=== PATIENT | male | born 1955 | race Caucasian/White ===

== ENCOUNTER 2024-10-01 08:54 | Outpatient (AMB) | payer OTHER, SELFPAY ==
--- NOTE | 2024-10-01 09:02 | PD.ORTHCLVIS ---
Vital signs 10/01/24 09:23 Height 1.7 m Height Method Measured Weight 83.178 kg Weight Measurement Method Standing Scale BMI 28.7 BP 105/70 Blood Pressure Source Automatic Cuff Blood Pressure Location Left Upper Arm Position Sitting Respiration 18 Pulse 134 H Pulse Source Monitor Temp 97.4 F Temp Source Temporal Artery Scan Pulse Oximetry (%) 92 L Oxygen Delivery Method Room Air Med/Allergies Allergies & Medications Allergies No Known Allergies Allergy (Verified 10/01/24 11:19) Medication Reconciliation amlodipine 10 mg tablet 10 mg PO QDAY 10/01/24 [History Confirmed 10/01/24] fluconazole 200 mg tablet 200 mg PO QDAY 10/01/24 [History Confirmed 10/01/24] gabapentin 100 mg capsule 100 mg PO QDAY 10/01/24 [History Confirmed 10/01/24] metformin 500 mg tablet 500 mg PO BID 10/01/24 [History Confirmed 10/01/24] tamsulosin 0.4 mg capsule 0.4 mg PO QDAY 10/01/24 [History Confirmed 10/01/24] Exam Exam Patient is in no acute distress and is cooperative with the examination today. Breathing is nonlabored. In no respiratory distress. Bilateral extremities were evaluated and demonstrates sensation intact to light touch. Palpable pedal pulses are present. No significant edema is present. Bilateral hips were examined. The patient has no pain with log roll of the hips. Internal rotation to 30 degrees and external rotation to 30 degrees is painless. Negative FADIR. The left knee was examined. The left knee is in varus alignment. Range of motion from 0-115 degrees. Knee is stable to varus and valgus as well as AP translation with <5mm. Patient has a negative McMurrays. There is no pain with patellofemoral compression and no crepitus noted. The knee is tender to palpation medially. The right knee was also examined. The right knee is in varus alignment. Range of motion from 0-120 degrees. Knee is stable to varus and valgus as well as AP translation with <5mm. Patient has a negative McMurrays. There is no pain with patellofemoral compression and no crepitus noted. The knee is tender to palpation medially Assessment and Plan Problem List (1) Bilateral primary osteoarthritis of knee: Status: Acute Plan: Patient is a 69-year-old male with diabetes that is apparently uncontrolled and bilateral knee pain worse on the left. We discussed different treatment options. We will get x-rays to better evaluate his knees. We will need a A1c as this would likely determine our treatment plan Advanced Care Planning Discussion Advance care planning discussed with:: patient Office Procedures GNS Level of Care Nursing/Assessment Patient Status: Established Patient Nursing Assessment/Reassesment: Medication Reconciliation, Update PMH in EMR and Vital Signs Coordination of Care: Complex Care and Chronic Disease 1-5, Education Complex Pt/Fam, Consent,records obtained, informed consent, Results/Orders obtained and Staff clarify orders Special Needs: Language special needs Established Patient Charge Established Patient Point Assignment: 95 Established Patient Point Charge: Level 3 (80-115) MA Intake Visit Data Collection New Patient or Established: New Patient (never been to [facility]) Reason for Visit:: BILATERAL OSTEOARTHRITIS OF THE KNEE Seen by Clinical Staff ONLY (RN/MA): No 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 PCP or OBGYN visit in last 3 months: Yes Hx Now: No Do You Feel Safe at Home: Yes Authorities Contacted: N/A Questionairres Past Medical History Past Medical History Have you ever been diagnosed with any of the following: Cardiology Problems Hypercholesterolemia: Yes Congestive Heart Failure: No Hypertension: Yes Respiratory Problems Chronic Obstructive Pulmonary Disease (COPD): No Genital/Urinary Problems Renal Disease: No Endocrine Problems Diabetes Mellitus Type 1: Yes Diabetes Mellitus Type 2: Yes Subjective Visit Visit for: new patient and knee Immunization / Flu Flu Vaccine in the Last 12 Months: Yes Flu Vaccine Exclusion Criteria: Already Received History of Present Illness Chief complaint: bilateral knee pain Patient is a pleasant 69-year-old male with left greater than right knee pain. Has been ongoing for several years. He is using a walker because of the pain. He has tried injections as well as anti-inflammatories in the past including Tylenol. He was told that he needed surgery in the past. The prior surgeon did leave the area unfortunately. In the referral from the primary care provider, he reports that his diabetes is uncontrolled. Will get a hemoglobin A1c to see if it is high and to see if he is an operative candidate Personal History BMI Counceling provided: Yes Pain Pain level (0-10): 10 Pain location: inside (medial) Pain quality: sharp Pain timing: night and increases with activity Associated signs & symptoms: none Ambulatory data Ambulatory device: walker Treatments Improvement with previous injections: No Improvement with PT: No Improvement with NSAIDS: no Review of Systems Review of Systems: All systems negative unless otherwise noted in HPI.
--- NOTE | 2024-10-01 09:12 | XR_ITS ---
Examination: Bilateral knees 2 views Bilateral knee left lateral knee 2 views Bilateral axial knees single view TECHNIQUE: Bilateral AP knees standing single view, bilateral PA knees standing single view flexion Standing right lateral knee left lateral knee 2 views Bilateral axial knees single view total 5 views Date and time: October 01, 2024 0923 hours INDICATIONS: Bilateral knee pain beginning 2 years ago. FINDINGS: Prominent osteopenia Severe narrowing, [id number], medial joint spaces bilaterally Moderate to advanced bilateral osteoarthritis patellofemoral joints No fractures IMPRESSION: Severe narrowing, [id number], medial joint spaces bilaterally
[2024-10-01 09:23] VITALS: BP 105/70; PULSE 134; RESP 18; TEMP 36.3; O2SAT 92; BMI 28.7
== END 2024-10-01 09:23 | disposition home or self-care (01) ==
PROVIDERS: PCP Family Medicine; Referring Provider Family Medicine; Supervising Provider Orthopaedic Surgery Adult Reconstructive Orthopaedic Surgery; Visit Provider Orthopaedic Surgery Adult Reconstructive Orthopaedic Surgery
DX: M17.0 Bilateral primary osteoarthritis of knee (principal); M25.562 Pain in left knee; M25.561 Pain in right knee; E11.9 Type 2 diabetes mellitus without complications; I10 Essential (primary) hypertension; E78.00 Pure hypercholesterolemia, unspecified
CPT/HCPCS: 73564; 99213; G0463

== ENCOUNTER 2024-10-22 08:08 | Outpatient (AMB) | payer OTHER, SELFPAY ==
--- NOTE | 2024-10-22 08:28 | ORTHONT_ITS ---
Vital signs 10/22/24 08:31 Height 1.7 m Height Method Stated Weight 79.634 kg Weight Measurement Method Standing Scale BMI 27.5 BP 96/64 Blood Pressure Source Automatic Cuff Blood Pressure Location Left Upper Arm Position Sitting Respiration 18 Pulse 118 H Pulse Source Monitor Temp 97.4 F Temp Source Temporal Artery Scan Pulse Oximetry (%) 95 Oxygen Delivery Method Room Air Med/Allergies Allergies & Medications Allergies No Known Allergies Allergy (Verified 10/22/24 08:33) Medication Reconciliation amlodipine 10 mg tablet 10 mg PO QDAY 10/01/24 [History Confirmed 10/22/24] fluconazole 200 mg tablet 200 mg PO QDAY 10/01/24 [History Confirmed 10/22/24] gabapentin 100 mg capsule 100 mg PO QDAY 10/01/24 [History Confirmed 10/22/24] metformin 500 mg tablet 500 mg PO BID 10/01/24 [History Confirmed 10/22/24] tamsulosin 0.4 mg capsule 0.4 mg PO QDAY 10/01/24 [History Confirmed 10/22/24] Exam Exam Patient is in no acute distress and is cooperative with the examination today. Breathing is nonlabored. In no respiratory distress. Bilateral extremities were evaluated and demonstrates sensation intact to light touch. Palpable pedal pulses are present. No significant edema is present. Bilateral hips were examined. The patient has no pain with log roll of the hips. Internal rotation to 30 degrees and external rotation to 30 degrees is painless. Negative FADIR. The left knee was examined. The left knee is in varus alignment. Range of motion from 0-115 degrees. Knee is stable to varus and valgus as well as AP translation with <5mm. Patient has a negative McMurrays. There is no pain with patellofemoral compression and no crepitus noted. The knee is tender to palpation medially. The right knee was also examined. The right knee is in varus alignment. Range of motion from 0-120 degrees. Knee is stable to varus and valgus as well as AP translation with <5mm. Patient has a negative McMurrays. There is no pain with patellofemoral compression and no crepitus noted. The knee is tender to palpation medially X-rays demonstrate bilateral joint space narrowing medially with complete obliteration of the medial joint space Assessment and Plan Problem List (1) Bilateral primary osteoarthritis of knee: Status: Acute Plan: Patient is a 69-year-old male with diabetes that is apparently uncontrolled and bilateral knee pain worse on the left. We discussed different treatment options. Once his sugars are controlled, we will consider surgery Advanced Care Planning Discussion Advance care planning discussed with:: patient Office Procedures GNS Level of Care Nursing/Assessment Patient Status: Established Patient Nursing Assessment/Reassesment: Medication Reconciliation, Update PMH in EMR and Vital Signs Coordination of Care: Complex Care and Chronic Disease 1-5, Education Complex Pt/Fam, Consent,records obtained, informed consent, Results/Orders obtained and Staff clarify orders Established Patient Charge Established Patient Point Assignment: 95 Established Patient Point Charge: EP Level 3 (80-115) MA Intake Visit Data Collection New Patient or Established: Established Patient (seen at [facility] within 3 years) Reason for Visit:: OA BILATERAL KNEE/XRAY Seen by Clinical Staff ONLY (RN/MA): No 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 PCP or OBGYN visit in last 3 months: Yes Hx Now: No Do You Feel Safe at Home: Yes Authorities Contacted: N/A Questionairres Past Medical History Past Medical History Have you ever been diagnosed with any of the following: Cardiology Problems Hypercholesterolemia: Yes Congestive Heart Failure: No Hypertension: Yes Respiratory Problems Chronic Obstructive Pulmonary Disease (COPD): No Smoking: No Smoking Cessation Counseling: No Smoking Exposure: No Genital/Urinary Problems Renal Disease: No Endocrine Problems Diabetes Mellitus Type 1: Yes Diabetes Mellitus Type 2: Yes Subjective Visit Visit for: follow up visit, knee and x-rays Immunization / Flu Flu Vaccine in the Last 12 Months: Yes Flu Vaccine Exclusion Criteria: Already Received History of Present Illness Chief complaint: bilateral knee pain Patient is a pleasant 69-year-old male with left greater than right knee pain. Has been ongoing for several years. He is using a walker because of the pain. He has tried injections as well as anti-inflammatories in the past including Tylenol. He was told that he needed surgery in the past. The prior surgeon did leave the area unfortunately. In the referral from the primary care provider, he reports that his diabetes is uncontrolled. His last hemoglobin A1c was over 8 and was previously 10. It still needs to be better controlled Personal History BMI Counceling provided: Yes Pain Pain level (0-10): 6 Pain location: inside (medial) Pain quality: sharp Pain timing: night and increases with activity Associated signs & symptoms: none Ambulatory data Ambulatory device: walker Treatments Improvement with previous injections: No Improvement with PT: No Improvement with NSAIDS: no Review of Systems Review of Systems: All systems negative unless otherwise noted in HPI.
[2024-10-22 08:31] VITALS: BP 96/64; PULSE 118; RESP 18; TEMP 36.3; O2SAT 95; BMI 27.5
== END 2024-10-22 08:38 | disposition home or self-care (01) ==
PROVIDERS: PCP Family Medicine; Referring Provider Family Medicine; Supervising Provider Orthopaedic Surgery Adult Reconstructive Orthopaedic Surgery; Visit Provider Orthopaedic Surgery Adult Reconstructive Orthopaedic Surgery
DX: M17.0 Bilateral primary osteoarthritis of knee (principal); M25.562 Pain in left knee; M25.561 Pain in right knee; I10 Essential (primary) hypertension; E78.00 Pure hypercholesterolemia, unspecified; E11.9 Type 2 diabetes mellitus without complications
CPT/HCPCS: 99213; G0463

== ENCOUNTER 2024-11-11 08:54 | Emergency (ER) | payer OTHER, SELFPAY ==
[2024-11-11 09:26] VITALS: BP 100/71; PULSE 126; RESP 18; TEMP 37.2; O2SAT 95; BMI 29.8
--- NOTE | 2024-11-11 09:39 | XR_ITS ---
Examination: AP chest single view Technique : AP portable upright chest single view Date and time: November 11, 2024 0947 hours INDICATIONS: Chest pain today. FINDINGS: Normal heart size Subsegmental atelectasis left base Basilar bronchitis pattern. No lobar pneumonia IMPRESSION: Basilar bronchitis pattern
[2024-11-11 10:32] LABS: INR 1.1 (0.9-1.3); Partial Thromboplastin Time 28.3 Seconds (22.0-36.0); Prothrombin Time 12.4 Seconds (9.0-12.2)
[2024-11-11 10:37] LABS: B-Type Natriuretic Peptide < 20 pg/mL (0-100)
[2024-11-11 10:50] LABS: Alanine Aminotransferase 17 U/L (10-49); Albumin, Serum 4.3 gm/dL (3.4-4.8); Albumin/Globulin Ratio 1.5 (1.2-2.2); Alkaline Phosphatase 78 U/L (46-116); Anion Gap 16 (7-16); Aspartate Amino Transferase 24 U/L (0-34); BUN/Creatinine Ratio 20 Ratio (12-20); Bilirubin,Total 0.5 mg/dL (0.3-1.2); Blood Urea Nitrogen 14 mg/dL (9-23); Calcium 10.1 mg/dL (8.3-10.6); Calcium (Corrected) 10.1 mg/dL (8.5-10.1); Carbon Dioxide 30.0 mMol/L (20.0-31.0); Chloride 94 mMol/L (98-107); Creatinine (Component) 0.7 mg/dL (0.6-1.3); Estimated Creatinine Clearance 87.8 mL/min (>60); Globulin 2.8 gm/dL (2.3-3.5); Glucose 98 mg/dL (74-106); Lipase 25 U/L (12-53); Magnesium 1.1 mg/dL (1.6-2.6); Osmolality,Calculated 279 (275-295); Sodium 140 mMol/L (136-145); Total Protein 7.1 gm/dL (5.7-8.2); Troponin I < 0.002 ng/mL (0.0-0.045); eGFR > 60 See Note
[2024-11-11 10:53] LABS: Potassium 2.4 mMol/L (3.4-5.1)
--- NOTE | 2024-11-11 11:08 | XR_ITS ---
Examination: CT abdomen with intravenous contrast CT pelvis with intravenous contrast 2-D coronal reconstructions 2-D sagittal reconstructions Date and time of exam:November 11, 2024 1217 hours, comparison 11/11/2024 1309 hours without contrast. CTDI: vol (mGy) 14.4 DLP: (mGycm) 893 Technique: Multiple axial sections of the abdomen and pelvis have been obtained. 64 slice high-resolution scanner used. 3 mm axial sections have been obtained, post intravenous injection 60 cc [id number] 2-D sagittal, coronal reconstructions obtained. Low dose protocols were performed. One or more of the following dose reduction techniques were used; automated exposure control, adjustment of the mA and/or KV according to patient size, use of iterative reconstruction technique. Findings: Multiple subcentimeter pulmonary nodules No focal liver or splenic lesion Distended gallbladder No pancreatic or adrenal mass No bowel obstruction No renal or ureteral calculi, no hydronephrosis Normal appendix No bowel obstruction or diverticulitis AP prostate dimension 4.4 cm Fat-containing inguinal hernia IMPRESSION: Distended gallbladder, recommend gallbladder sonography follow-up No renal or ureteral calculi, no hydronephrosis Normal appendix Negative for bowel obstruction
--- NOTE | 2024-11-11 11:10 | XR_ITS ---
Examination: CT brain head without contrast. 2-D sagittal coronal reconstructions Date and time of exam:November 11, 2024 1307 hours INDICATIONS: Onset dizziness today CTDI: vol (mGy):51.5 DLP: (mGycm):1043 Technique: Multiple CT axial sections of the brain have been obtained, 5 mm slice thickness. Contrast has not been administered. 2-D sagittal, coronal reconstructions have been obtained Low dose protocols were performed. One or more of the following dose reduction techniques were used; automated exposure control, adjustment of the mA and/or KV according to patient size, use of iterative reconstruction technique. Findings: No significant ventricular enlargement. Intra-axial or extra-axial hemorrhage density is not seen. No mass effect or midline shift Basal cisterns are not remarkable. Fourth ventricle is midline. Cranial vault intact. Acute right maxillary sinusitis Impression: Negative for acute hemorrhage, mass effect or midline shift Advise clinical correlation follow-up accordingly
[2024-11-11 11:19] LABS: Collection Type, Urine Clean Catch; Squamous Epithelial Cell,Urine 0 /hpf (0-5)
[2024-11-11 11:30] LABS: Amphetamine/Methamp Scrn,U Negative (Negative); Barbiturate Screen,Urine Negative (Negative); Benzodiazepines Screen,Urine Negative (Negative); Benzoylecgonine Screen, Ur Negative (Negative); Fentanyl Screen,Urine Negative (Negative); Opiate Screen,Urine Negative (Negative); THC Screen,Urine Negative (Negative)
[2024-11-11] MEDS: SODIUM CHLORIDE 0.9% 1000 ML 1,000 ML 999 ML IV ×2 (11:30→12:44)
[2024-11-11] MEDS: POTASSIUM CHL 10 mEq IVPB 10 MEQ/100 ML BAG 100 MEQ IV ×5 (11:30→22:57)
[2024-11-11] MEDS: Magnesium Sulfate 2 GM Ivpb 2 GM/50 ML BAG IV ×2 (11:31→22:57)
--- NOTE | 2024-11-11 11:31 | PD.EDNV ---
Nausea/Vomit./Diarrhea-RME/HPI General Chief complaint: Abdominal Pain Stated complaint: ABD PAIN AND DECREASED APPETITE Arrival date/time: 11/11/24 08:54 RME / HPI RME / HPI Narrative: 69 year old male with history of hypertension, diabetes, hyperlipidemia, arthritis presents to the ED for evaluation of nausea, vomiting, and decreased appetite today. Reportedly has had nausea and vomiting for 2 months and prescribed nausea medications by PCP. However, has had no relief. States in the last few weeks feels his symptoms are worse and accompanied by decreased appetite and weight loss. Additionally states he has a hernia to his left groin with increased pain to the area. Denies fevers, chills, sweats, chest pain, cough, shortness of breath, diarrhea, constipation, blood in stool, or change to urinary habits. Related Data Home Medications ?Medication ?Instructions ?Recorded ?Confirmed amlodipine 10 mg tablet 10 mg PO QDAY 10/01/24 10/22/24 fluconazole 200 mg tablet 200 mg PO QDAY 10/01/24 10/22/24 gabapentin 100 mg capsule 100 mg PO QDAY 10/01/24 10/22/24 metformin 500 mg tablet 500 mg PO BID 10/01/24 10/22/24 tamsulosin 0.4 mg capsule 0.4 mg PO QDAY 10/01/24 10/22/24 Allergies Allergy/AdvReac Type Severity Reaction Status Date / Time No Known Allergies Allergy Verified 11/11/24 08:57 Review of Systems Review of Systems Systems Reviewed: All systems reviewed, normal except as documented Past Medical History Past Medical History CARDIAC: Positive Cardiac Disorders, Hypercholesterolemia and Hypertension GASTROINTESTINAL: Positive Gastrointestinal Disorders (hernia) and Gall Bladder Disease (gallstones) MUSCULOSKELETAL: Positive Arthritis ENDOCRINE: Positive Diabetes Mellitus Type 2 Social History SMOKING STATUS: Former smoker ED Exam Narrative Physical exam: GENERAL APPEARANCE: alert and oriented x 4, well-developed, well-nourished, pallor HEENT: Normocephalic, atraumatic; keloid type scar left occiput of head; pupils equal, round, reactive to light; EOMI; mucous membranes pink, moist; oropharynx clear NECK: Supple LUNGS: CTABL; no wheezes, no rales, no rhonchi HEART: Regular rate, regular rhythm; normal S1, S2; no murmurs ABDOMEN: distended; normal BS; soft, mild diffuse tenderness, no guarding, no rebound; no masses, no organomegaly, no hernia BACK: no CVA tenderness EXTREMITIES: atraumatic; no edema NEUROLOGIC: awake; alert and oriented x4; cranial nerves II-XII grossly intact; no focal sensory or motor deficits PSYCHIATRIC: appropriate mood and affect SKIN: warm, dry, pallor; no rashes Course Quality Measures none Orders Category Date Time Status Bedside COVID-19 Antigen Test NOW Care 11/11/24 11:06 Active Bedside Influenza A&B Antigen Test NOW Care 11/11/24 11:[address] Screening NOW Care 11/11/24 11:08 Active EKG (ED ONLY) *Do not use* NOW Care 11/11/24 09:40 Completed IV [Insert IV] NOW Care 11/11/24 09:[address] abdomen pelvis w con Stat Exams 11/11/24 11:[address] abdomen pelvis wo con Stat Exams 11/11/24 13:[address] head/brain wo con Stat Exams 11/11/24 11:10 Completed EKG (ED Only) Stat Exams 11/11/24 09:39 Ordered US abdomen limited Stat Exams 11/11/24 14:29 Completed XR chest 1V portable Stat Exams 11/11/24 09:39 Completed B-Type Natriuretic Peptide Stat Lab 11/11/24 09:54 Completed CBC Stat Lab 11/11/24 09:54 Completed Comprehensive Metabolic Panel Stat Lab 11/11/24 09:54 Completed Drug Screen,Urine Stat Lab 11/11/24 10:56 Completed Lipase Stat Lab 11/11/24 09:54 Completed Magnesium Stat Lab 11/11/24 09:54 Completed Partial Thromboplastin Time Stat Lab 11/11/24 09:54 Completed Prothrombin Time with INR Stat Lab 11/11/24 09:54 Completed Troponin I Stat Lab 11/11/24 09:54 Completed Urinalysis, C/S if Indicated Stat Lab 11/11/24 10:56 Completed Magnesium Sulfate 2 GM Ivpb [Magnesium Sulfate Ivpb] Med 11/11/24 10:57 Discontinued 2 gm in 50 ml IV X1 POTASSIUM CHL 10 mEq IVPB [Kcl Ivpb] Med 11/11/24 10:58 Discontinued 10 meq in 100 ml IV Q1H Sodium Chloride 0.9% 1000 ml [Ns] 1,000 ml Med 11/11/24 11:04 Discontinued IV 999 mls/hr Sodium Chloride 0.9% 1000 ml [Ns] 1,000 ml Med 11/11/24 11:04 Discontinued IV 999 mls/hr Vital Signs Vital signs: Vital Signs Temperature 98.9 F 11/11/24 09:26 Pulse Rate 126 H 11/11/24 09:26 Respiratory Rate 18 11/11/24 09:26 Blood Pressure 100/71 11/11/24 09:26 Pulse Oximetry (%) 95 11/11/24 09:26 Oxygen Delivery Method Room Air 11/11/24 09:26 Pulse ox is 95% on room air which is adequate. Nausea/Vomiting/Diarrhea MDM Narrative MDM Narrative:: IMikki am scribing for and in the presence of Dr. Pantoja. 1800: Patient signed out to Dr. Sharif pending final disposition. Patient data External records reviewed:: [facility] previous records (I reviewed ED visit on 08/20/2017 ) Clinical information provided by:: patient Social determinants that could affect healthcare access:: none Patient has the following chronic illnesses:: hypertension, diabetes, hyperlipidemia, arthritis How is presenting disease/condition affected by chronic disease/condition?: exacerbated by Evaluation data The following diagnostics were reviewed and interpreted by me:: lab results and radiology exam(s) Lab and/or radiology exams considered but not ordered:: None Interpretation Summary: Ordering Physician: Joseph (KENNA)Sumit NP Date of Service: 11/11/24 Procedure(s): XR chest 1V portable Accession Number(s): [id number] cc: Joseph (KENNA),Sumit PIERSON; Mauro Koroma MD~ Examination: AP chest single view Technique : AP portable upright chest single view Date and time: November 11, 2024 0947 hours INDICATIONS: Chest pain today. FINDINGS: Normal heart size Subsegmental atelectasis left base Basilar bronchitis pattern. No lobar pneumonia IMPRESSION: Basilar bronchitis pattern Dictated By: Mauro Koroma MD Signed By: <Electronically signed by Mauro Koroma MD in OV> 11/11/24 1004 Ordering Physician: Bernie Pantoja MD Date of Service: 11/11/24 Procedure(s): CT abdomen pelvis w con Accession Number(s): [id number] cc: Osvaldo Rai MD; Mauro Koroma MD; Bernie Pantoja MD~ Examination: CT abdomen with intravenous contrast CT pelvis with intravenous contrast 2-D coronal reconstructions 2-D sagittal reconstructions Date and time of exam:November 11, 2024 1217 hours, comparison 11/11/2024 1309 hours without contrast. CTDI: vol (mGy) 14.4 DLP: (mGycm) 893 Technique: Multiple axial sections of the abdomen and pelvis have been obtained. 64 slice high-resolution scanner used. 3 mm axial sections have been obtained, post intravenous injection 60 cc [id number] 2-D sagittal, coronal reconstructions obtained. Low dose protocols were performed. One or more of the following dose reduction techniques were used; automated exposure control, adjustment of the mA and/or KV according to patient size, use of iterative reconstruction technique. Findings: Multiple subcentimeter pulmonary nodules No focal liver or splenic lesion Distended gallbladder No pancreatic or adrenal mass No bowel obstruction No renal or ureteral calculi, no hydronephrosis Normal appendix No bowel obstruction or diverticulitis AP prostate dimension 4.4 cm Fat-containing inguinal hernia IMPRESSION: Distended gallbladder, recommend gallbladder sonography follow-up No renal or ureteral calculi, no hydronephrosis Normal appendix Negative for bowel obstruction Dictated By: Mauro Koroma MD Signed By: <Electronically signed by Mauro Koroma MD in OV> 11/11/24 1358 Ordering Physician: Bernie Pantoja MD Date of Service: 11/11/24 Procedure(s): CT head/brain wo con Accession Number(s): [id number] cc: Osvaldo Rai MD; Mauro Koroma MD; Bernie Pantoja MD~ Examination: CT brain head without contrast. 2-D sagittal coronal reconstructions Date and time of exam:November 11, 2024 1307 hours INDICATIONS: Onset dizziness today CTDI: vol (mGy):51.5 DLP: (mGycm):1043 Technique: Multiple CT axial sections of the brain have been obtained, 5 mm slice thickness. Contrast has not been administered. 2-D sagittal, coronal reconstructions have been obtained Low dose protocols were performed. One or more of the following dose reduction techniques were used; automated exposure control, adjustment of the mA and/or KV according to patient size, use of iterative reconstruction technique. Findings: No significant ventricular enlargement. Intra-axial or extra-axial hemorrhage density is not seen. No mass effect or midline shift Basal cisterns are not remarkable. Fourth ventricle is midline. Cranial vault intact. Acute right maxillary sinusitis Impression: Negative for acute hemorrhage, mass effect or midline shift Advise clinical correlation follow-up accordingly Dictated By: Mauro Koroma MD Signed By: <Electronically signed by Mauro Koroma MD in OV> 11/11/24 1339 Ordering Physician: Bernie Pantoja MD Date of Service: 11/11/24 Procedure(s): CT abdomen pelvis wo con Accession Number(s): [id number] cc: Osvaldo Rai MD; Mauro Koroma MD; Bernie Pantoja MD~ Examination: CT abdomen and pelvis without contrast. Coronal 3-D reconstructions. Sagittal 2-D reconstructions. Date and time of exam:November 11, 2024 1309 hours INDICATIONS: Generalized abdominal pain and vomiting today CTDI: vol (mGy): 14.6 DLP: (mGycm): 897 Technique: Axial images of the abdomen have been obtained, 3 mm slice thickness Intravenous contrast material has not been administered. Low dose protocols were performed. One or more of the following dose reduction techniques were used; automated exposure control, adjustment of the mA and/or KV according to patient size, use of iterative reconstruction technique. Findings: 3 mm pulmonary nodule right lower lobe image 12 2 mm pulmonary nodule left lower lobe image 17 5 mm pulmonary nodule right lower lobe image 21 3 mm pulmonary nodule left lower lobe image 55 No visualized liver or splenic lesion Mildly distended gallbladder No pancreatic or adrenal mass Mild renal parenchymal scar formation No renal or ureteral calculi, no hydronephrosis Aorta normal size Normal appendix No bowel obstruction Prostatomegaly AP dimension 4.4 cm No bladder mass Fat-containing left inguinal hernia Severe osteopenia with severe chronic osteoporotic compression L4 IMPRESSION: Multiple pulmonary nodules as above, recommend elective CT chest without contrast follow-up Mildly distended gallbladder, recommend hepatobiliary sonography follow-up. Mild renal parenchymal scar formation Normal appendix Mild prostatomegaly Fat-containing left inguinal hernia Negative for bowel obstruction Dictated By: Mauro Koroma MD Signed By: <Electronically signed by Mauro Koroma MD in OV> 11/11/24 1355 Ordering Physician: Bernie Pantoja MD Date of Service: 11/11/24 Procedure(s): US abdomen limited Accession Number(s): [id number] cc: Osvaldo Rai MD; Mauro Koroma MD; Bernie Pantoja MD~ Examination: Abdomen sonogram, Limited Date and time of exam: November 11, 2024, 1502 hrs. Indications: Loss of appetite beginning one month ago. Technique: Real-time swan scale transabdominal sonographic images of the upper abdomen obtained. Findings: Multiple gallstones. Gallbladder wall borderline thickened 0.4 cm. Common bile duct 0.2 cm. Pancreatic head 2.3 cm. Liver 14.5 cm fatty infiltration smooth contour. Normal hepatopedal portal venous oh Patent IVC Impression: Cholelithiasis Borderline thickening gallbladder wall, clinical correlation advised Consider MRCP or HIDA scan follow-up to exclude cholecystitis as clinically warranted. Dictated By: Mauro Koroma MD Signed By: <Electronically signed by Mauro Koroma MD in OV> 11/11/24 1716 Medications / Prescriptions Medications / Prescriptions considered but not ordered:: None Medication administrations:: Medication Administration History Discontinued Medications Magnesium Sulfate (Magnesium Sulfate Ivpb) 2 gm in 50 mls @ 25 mls/hr IV X1 ONE Stop: 11/11/24 12:56 Last Infusion: 11/11/24 14:00 Dose: Infused Documented By: Admin: 11/11/24 11:31 Dose: 25 mls/hr Documented By: AA Potassium Chloride (Kcl Ivpb) 10 meq in 100 mls @ 100 mls/hr IV Q1H LAURIE Stop: 11/11/24 14:57 Last Infusion: 11/11/24 17:13 Dose: Infused Documented By: Admin: 11/11/24 15:46 Dose: 100 mls/hr Documented By: Infusion: 11/11/24 15:45 Dose: Infused Documented By: Admin: 11/11/24 14:42 Dose: 100 mls/hr Documented By: Infusion: 11/11/24 13:43 Dose: Infused Documented By: Admin: 11/11/24 12:43 Dose: 100 mls/hr Documented By: Infusion: 11/11/24 12:42 Dose: Infused Documented By: Admin: 11/11/24 11:30 Dose: 100 mls/hr Documented By: AA Sodium Chloride (Ns) 1,000 mls @ 999 mls/hr IV .Q1H1M ONE Stop: 11/11/24 12:04 Last Infusion: 11/11/24 12:42 Dose: Infused Documented By: Admin: 11/11/24 11:30 Dose: 999 mls/hr Documented By: ANGY Sodium Chloride (Ns) 1,000 mls @ 999 mls/hr IV .Q1H1M ONE Stop: 11/11/24 12:04 Last Infusion: 11/11/24 15:25 Dose: Infused Documented By: Admin: 11/11/24 12:44 Dose: 999 mls/hr Documented By: ANGY See above Consultations Consultation(s) initiated? (list below): No Diagnosis Nausea Differential Diagnosis: gastroenteritis, drug-induced nausea and vomiting and dehydration Most likely diagnosis given after review of the tests above:: Abdominal pain Nausea and vomiting Admission Indicated Admission indicated?: not indicated Explain why admission is indicated or not indicated:: Signed out pending final disposition Admission Request Was there a request for admission?: No Disposition Plan Disposition Plan: other (specify) (Signed out to Dr. Sharif ) Discharge Plan Prescriptions/Referrals Prescriptions/Med Rec: No Action metformin 500 mg tablet 500 mg PO BID tamsulosin 0.4 mg capsule 0.4 mg PO QDAY amlodipine 10 mg tablet 10 mg PO QDAY gabapentin 100 mg capsule 100 mg PO QDAY fluconazole 200 mg tablet 200 mg PO QDAY Referrals: Osvaldo Rai MD [Primary Care Provider] - In 1 week Problem List Clinical Impression: Lung nodules Patient/Caregiver Discharge Instructions Print Language: Iranian
[2024-11-11 11:38] LABS: Basophils # (Auto) 0.0 Thou/mm3 (0.0-0.2); Basophils % (Auto) 1 % (0-2.5); Eosinophils # (Auto) 0.0 Thou/mm3 (0.0-0.5); Eosinophils % (Auto) 1 % (0-10); Hematocrit 38.0 % (41.0-53.0); Hemoglobin 13.1 g/dL (13.5-16.0); Immature Granulocytes Auto 0.01 Thou/mm3 (0.00-0.00); Lymphocytes # (Auto) 1.9 Thou/mm3 (1.0-4.8); Lymphocytes % (Auto) 25 % (10-50); Mean Corpuscular HGB Conc 34.5 g/dl (31.0-37.0); Mean Corpuscular Hemoglobin 30.0 pg (25.0-35.0); Mean Corpuscular Volume 87 fL (80-100); Monocytes # (Auto) 0.7 Thou/mm3 (0.0-0.8); Monocytes % (Auto) 10 % (0-12); Neutrophils # (Auto) 4.9 Thou/mm3 (1.8-7.7); Neutrophils % (Auto) 65 % (37-80); Nucleated Red Blood Cell # 0.00 Thou/mm3 (0.00-0.00); Nucleated Red Blood Cell % 0 /100 WBC (0); Platelet Count 388 Thou/mm3 (140-440); RDW Standard Deviation 45.8 fL (35.1-43.9); Red Blood Count 4.36 Miln/mm3 (4.50-5.90); White Blood Count 7.6 Thou/mm3 (3.8-10.6)
[2024-11-11 11:44] LABS: Bacteria,Urine Rare; Bilirubin,Urine 1+ (Negative); Blood,Urine Negative (Negative); Clarity,Urine Clear (Clear/Hazy); Color,Urine Yellow (Lt Yel-Yel); Culture Indicated,Urine Not Indicated; Glucose, Urine Negative (Negative); Hyaline Casts,Urine 2 /hpf (0-1); Ketones,Urine 3+ (Negative); Leukocyte Esterase,Urine Negative (Negative); Nitrite,Urine Negative (Negative); PH,Urine 6.0 (5.0-7.0); Protein,Urine 1+ (Neg - Trace); RBC,Urine < 1 /hpf (0-3); Specific Gravity,Urine 1.034 (1.001-1.035); Urobilinogen,Urine 6.0 mg/dL (0.0-1.0); WBC,Urine 4 /hpf (0-5)
[2024-11-11 11:57] VITALS: BP 115/80; PULSE 81; RESP 16; TEMP 36.7; O2SAT 97
--- NOTE | 2024-11-11 12:49 | PC.NURSE ---
Patient presents to ED with c/o abd pain and vomiting with decreased appetite Patient is alert and oriented, ambulatory with walker. Patient with spouse at bedside, updated with plan of care and call light is within reach.
--- NOTE | 2024-11-11 13:34 | XR_ITS ---
Examination: CT abdomen and pelvis without contrast. Coronal 3-D reconstructions. Sagittal 2-D reconstructions. Date and time of exam:November 11, 2024 1309 hours INDICATIONS: Generalized abdominal pain and vomiting today CTDI: vol (mGy): 14.6 DLP: (mGycm): 897 Technique: Axial images of the abdomen have been obtained, 3 mm slice thickness Intravenous contrast material has not been administered. Low dose protocols were performed. One or more of the following dose reduction techniques were used; automated exposure control, adjustment of the mA and/or KV according to patient size, use of iterative reconstruction technique. Findings: 3 mm pulmonary nodule right lower lobe image 12 2 mm pulmonary nodule left lower lobe image 17 5 mm pulmonary nodule right lower lobe image 21 3 mm pulmonary nodule left lower lobe image 55 No visualized liver or splenic lesion Mildly distended gallbladder No pancreatic or adrenal mass Mild renal parenchymal scar formation No renal or ureteral calculi, no hydronephrosis Aorta normal size Normal appendix No bowel obstruction Prostatomegaly AP dimension 4.4 cm No bladder mass Fat-containing left inguinal hernia Severe osteopenia with severe chronic osteoporotic compression L4 IMPRESSION: Multiple pulmonary nodules as above, recommend elective CT chest without contrast follow-up Mildly distended gallbladder, recommend hepatobiliary sonography follow-up. Mild renal parenchymal scar formation Normal appendix Mild prostatomegaly Fat-containing left inguinal hernia Negative for bowel obstruction
[2024-11-11 14:29] VITALS: BP 118/79; PULSE 86; RESP 15; TEMP 36.9; O2SAT 96
--- NOTE | 2024-11-11 14:29 | XR_ITS ---
Examination: Abdomen sonogram, Limited Date and time of exam: November 11, 2024, 1502 hrs. Indications: Loss of appetite beginning one month ago. Technique: Real-time swan scale transabdominal sonographic images of the upper abdomen obtained. Findings: Multiple gallstones. Gallbladder wall borderline thickened 0.4 cm. Common bile duct 0.2 cm. Pancreatic head 2.3 cm. Liver 14.5 cm fatty infiltration smooth contour. Normal hepatopedal portal venous oh Patent IVC Impression: Cholelithiasis Borderline thickening gallbladder wall, clinical correlation advised Consider MRCP or HIDA scan follow-up to exclude cholecystitis as clinically warranted.
--- NOTE | 2024-11-11 18:03 | PD.EDADDENDU ---
Emergency Room Addendum <Julia Rai - Last Filed: 11/12/24 00:51> Addendum Narrative: I took over the care from Dr. Pantoja at 6 PM on 11/11/2024, see her notes for complete H&P and ED course. I reviewed all diagnostic test results. Blood tests remarkable for K 2.7, Mg 1.4. Diagnoses include: Asthenia Lung nodules Gallstones Hypokalemia Hypomagnesemia Treatment here included: Oral and IV KCl Magnesium 2g IV Based on my best medical judgment, made decision no further evaluation or treatment indicated at this time. Patient understands and agrees to the discharge instructions customized and printed, see below. Discharge Instructions from Dr. Sharif printed for you: 1. After evaluation, you have gallstones and low potassium level and low magnesium level and lung nodules. 2. Gallstones explain your abdominal pain. See attached handout. You need gallbladder to help digest fatty foods. So to prevent pain, avoid all fatty and oily and greasy and buttery and dairy foods.? This usually means take out and fast food restaurants. Zofran for nausea/vomiting.? Tylenol with codeine for severe pain.? Clear liquid diet for 24 hours then advance diet slowly as tolerated. 3. Low potassium level and low magnesium level and lung nodules may explain your weakness. Because you have lung nodules, we need to make sure you don't have cancer. 4. Try to eat regular nutritious meals. For good hydration, increase oral fluid and maintain clear urine. If dark or yellow, increase oral fluid. 5. Increase food rich in potassium, including banana daily. 6. Take magnesium pills as prescribed. And increase food rich in magnesium. Such as green and leafy vegetables and peanuts and almonds and cashews. 7. Most importantly, see a private doctor outside the ER on 11/13/2024 for recheck and further care. Ask to review all test results and official radiology reports, to make sure you receive all necessary follow-ups and monitoring, including repeat potassium and magnesium levels. Ask for help seeing a surgeon to consider elective surgery to remove your gallbladder. Ask for help to find the cause/treatment of your lung nodules. You will need referrals to see specialists, including cancer doctor and lung doctor. 8. Seek immediate medical care with worsening or with any concerns. Gonzalo Sharif MD <Gonzalo Sharif MD - Last Filed: 11/12/24 17:15> Addendum Narrative: I took over the care from Dr. Pantoja at 6 PM on 11/11/2024, see her notes for complete H&P and ED course. I reviewed all diagnostic test results. Diagnoses include: Asthenia Lung nodules Gallstones Hypokalemia Hypomagnesemia Treatment here included: IVF Oral and IV KCl Magnesium 4 gram IV Significant improvement noted. Recommended more outpatient workup and care. Based on my best medical judgment, made decision no further evaluation or treatment indicated at this time. Patient understands and agrees to the discharge instructions customized and printed, see below. Discharge Instructions from Dr. Sharif printed for you: 1. After evaluation, you have gallstones and low potassium level and low magnesium level and lung nodules. 2. Gallstones explain your abdominal pain. See attached handout. You need gallbladder to help digest fatty foods. So to prevent pain, avoid all fatty and oily and greasy and buttery and dairy foods.? This usually means take out and fast food restaurants. Zofran for nausea/vomiting.? Tylenol with codeine for severe pain.? Clear liquid diet for 24 hours then advance diet slowly as tolerated. 3. Low potassium level and low magnesium level and lung nodules may explain your weakness. Because you have lung nodules, we need to make sure you don't have cancer. 4. Try to eat regular nutritious meals. For good hydration, increase oral fluid and maintain clear urine. If dark or yellow, increase oral fluid. 5. Increase food rich in potassium, including banana daily. 6. Take magnesium pills as prescribed. And increase food rich in magnesium. Such as green and leafy vegetables and peanuts and almonds and cashews. 7. Most importantly, see a private doctor outside the ER on 11/13/2024 for recheck and further care. Ask to review all test results and official radiology reports, to make sure you receive all necessary follow-ups and monitoring, including repeat potassium and magnesium levels. Ask for help seeing a surgeon to consider elective surgery to remove your gallbladder. Ask for help to find the cause/treatment of your lung nodules. You will need referrals to see specialists, including cancer doctor and lung doctor. 8. Seek immediate medical care with worsening or with any concerns. Gonzalo Sharif MD
[2024-11-11 18:10] VITALS: BP 131/87; PULSE 81; RESP 18; TEMP 36.8; O2SAT 94
--- NOTE | 2024-11-11 18:32 | XR_ITS ---
Examination: CT chest, without intravenous contrast. Sagittal and coronal 2-D reconstructions. Exam date and time: November 11, 2024 1917 hrs. Indications: Multiple pulmonary nodules noted in the lower lung zones on CT abdomen pelvis study today CTDI:vol (mGy) 13.7 DLP: (mGycm) 502 Technique: Multiple 3.0 mm axial sections of the chest to been obtained. Bone and lung density settings are obtained. Sagittal and coronal 2-D reconstructions have been obtained. Low dose protocols were performed. One or more of the following dose reduction techniques were used; automated exposure control, adjustment of the mA and/or KV according to patient size, use of iterative reconstruction technique. Findings: No thoracic aortic aneurysm dilatation Pulmonary artery segments are not enlarged. No paratracheal tracheobronchial or bronchopulmonary adenopathy. There are at least 10 subcentimeter bilateral pulmonary nodules Minor scarring versus atelectasis in the lower lung zones No pneumonia or pulmonary edema Severe osteopenia Impression: At least 10 subcentimeter bilateral pulmonary nodules, consider early pulmonary nodular metastatic disease Recommend 6 month follow-up CT chest without contrast
[2024-11-11] MEDS: POTASSIUM CHLORIDE 10% 20 MEQ/15 ML UDC 40 MEQ PO ×2 (18:50→22:57)
[2024-11-11 19:55] LABS: Lactate (Lactic Acid) 1.2 mMol/L (0.4-2.0)
[2024-11-11 19:59] LABS: Sed Rate (ESR) 46 mm/hr (0-20)
[2024-11-11 20:35] LABS: Bilirubin,Direct 0.2 mg/dL (0.0-0.3); Procalcitonin 0.08 ng/ml (0.0-0.49); Thyroid Stimulating Hormone 1.14 uIU/mL (0.55-4.78)
[2024-11-11 20:49] LABS: Amylase 34 U/L (30-118); C-Reactive Protein 1.2 mg/dL (0.0-0.9)
[2024-11-11 21:22] VITALS: BP 117/78; PULSE 95; RESP 18; TEMP 37; O2SAT 97
[2024-11-11 22:28] LABS: Anion Gap 16 (7-16); BUN/Creatinine Ratio 18 Ratio (12-20); Blood Urea Nitrogen 7 mg/dL (9-23); Calcium 9.1 mg/dL (8.3-10.6); Carbon Dioxide 26.2 mMol/L (20.0-31.0); Chloride 100 mMol/L (98-107); Creatinine (Component) 0.4 mg/dL (0.6-1.3); Estimated Creatinine Clearance 153.7 mL/min (>60); Glucose 72 mg/dL (74-106); Magnesium 1.4 mg/dL (1.6-2.6); Osmolality,Calculated 280 (275-295); Sodium 142 mMol/L (136-145); eGFR > 60 See Note
[2024-11-11 22:29] LABS: Potassium 2.7 mMol/L (3.4-5.1)
[2024-11-11] MEDS: RINGERS LACTATED 1000 ML 1,000 ML 500 ML IV (22:56)
[2024-11-12 00:09] VITALS: BP 125/82; PULSE 100; RESP 16; TEMP 36.8; O2SAT 95
[2024-11-12 01:16] VITALS: BP 113/85; PULSE 88; RESP 16; TEMP 36.8; O2SAT 98
[2024-11-12 01:40] LABS: Magnesium 1.8 mg/dL (1.6-2.6); Potassium 3.0 mMol/L (3.4-5.1)
== END 2024-11-12 01:18 | disposition home or self-care (01) ==
PROVIDERS: Nurse Practitioner Primary Care; Emergency Provider Emergency Medicine; PCP Family Medicine
DX: R91.8 Other nonspecific abnormal finding of lung field (principal); K80.20 Calculus of gallbladder without cholecystitis without obstruction; E87.6 Hypokalemia; E83.42 Hypomagnesemia; R53.1 Weakness; E11.9 Type 2 diabetes mellitus without complications; E78.5 Hyperlipidemia, unspecified; M19.90 Unspecified osteoarthritis, unspecified site; I10 Essential (primary) hypertension; R23.1 Pallor; R42 Dizziness and giddiness
CPT/HCPCS: 36415; 70450; 71045; 71250; 74176; 74177; 76705; 80048; 80053; 80307; 81001; 82150; 82248; 83605; 83690; 83735; 83880; 84132; 84145; 84443; 84484; 85025; 85610; 85652; 85730; 86140; 87040; 87400; 87811; 93005; 96361; 96365; 96366; 96375; 99285; A4649; J1200; J3475; J3480; J7030; J7120; Q9967; A9270

== ENCOUNTER 2024-11-26 08:16 | Outpatient (AMB) | payer OTHER, SELFPAY ==
[2024-11-26 08:36] VITALS: BP 97/68; PULSE 134; RESP 18; TEMP 36.6; O2SAT 98; BMI 29.6
--- NOTE | 2024-11-26 08:36 | ORTHONT_ITS ---
Vital signs 11/26/24 08:36 Height 1.57 m Height Method Measured Weight 73.113 kg Weight Measurement Method Standing Scale BMI 29.6 BP 97/68 Blood Pressure Source Automatic Cuff Blood Pressure Location Left Upper Arm Position Sitting Respiration 18 Pulse 134 H Pulse Source Monitor Temp 97.8 F Temp Source Temporal Artery Scan Pulse Oximetry (%) 98 Oxygen Delivery Method Room Air Med/Allergies Allergies & Medications Allergies No Known Allergies Allergy (Verified 11/26/24 08:38) Medication Reconciliation amlodipine 10 mg tablet 10 mg PO QDAY 10/01/24 [History Confirmed 11/26/24] fluconazole 200 mg tablet 200 mg PO QDAY 10/01/24 [History Confirmed 11/26/24] gabapentin 100 mg capsule 100 mg PO QDAY 10/01/24 [History Confirmed 11/26/24] metformin 500 mg tablet 500 mg PO BID 10/01/24 [History Confirmed 11/26/24] tamsulosin 0.4 mg capsule 0.4 mg PO QDAY 10/01/24 [History Confirmed 11/26/24] acetaminophen 300 mg-codeine 30 mg tablet 2 tab PO Q8H PRN pain #20 tabs 11/12/24 [Rx Confirmed 11/26/24] diazepam 10 mg tablet 10 mg PO QHSPRN PRN insomnia #10 tabs 11/12/24 [Rx Confirmed 11/26/24] magnesium oxide 400 mg PO BID #60 tabs 11/12/24 [Rx Confirmed 11/26/24] ondansetron 4 mg disintegrating tablet 4 mg PO TID PRN nausea and vomiting 30 days #10 tabs 11/12/24 [Rx Confirmed 11/26/24] Exam Exam Patient is in no acute distress and is cooperative with the examination today. Breathing is nonlabored. In no respiratory distress. Bilateral extremities were evaluated and demonstrates sensation intact to light touch. Palpable pedal pulses are present. No significant edema is present. Bilateral hips were examined. The patient has no pain with log roll of the hips. Internal rotation to 30 degrees and external rotation to 30 degrees is painless. Negative FADIR. The left knee was examined. The left knee is in varus alignment. Range of motion from 0-115 degrees. Knee is stable to varus and valgus as well as AP translation with <5mm. Patient has a negative McMurrays. There is no pain with patellofemoral compression and no crepitus noted. The knee is tender to palpation medially. The right knee was also examined. The right knee is in varus alignment. Range of motion from 0-120 degrees. Knee is stable to varus and valgus as well as AP translation with <5mm. Patient has a negative McMurrays. There is no pain with patellofemoral compression and no crepitus noted. The knee is tender to palpation medially X-rays demonstrate bilateral joint space narrowing medially with complete obliteration of the medial joint space Assessment and Plan Problem List (1) Bilateral primary osteoarthritis of knee: Status: Acute Plan: Patient is a 69-year-old male with diabetes and bilateral knee pain. His diabetes is now under control. We will get bilateral knee injections today as he is not a surgical candidate currently because of his oncology workup right now Recommend knee cortisone injection as patient would like to proceed with conservative treatment at this time. The risks and benefits of the procedure were reviewed with the patient and patient gave verbal consent to continue with the procedure. Procedure: performed by Dr. Deleon Using sterile technique the Right knee was thoroughly prepped with alcohol, and approximately 1 cc of Depo-Medrol 80mg/mL and 4 cc of 0.2% ropivacaine was injected without resistance into the medial tibial femoral joint space. The patient tolerated the procedure. Recommend knee cortisone injection as patient would like to proceed with conservative treatment at this time. The risks and benefits of the procedure were reviewed with the patient and patient gave verbal consent to continue with the procedure. Procedure: performed by Dr. Deleon Using sterile technique the left knee was thoroughly prepped with alcohol, and approximately 1 cc of Depo-Medrol 80mg/mL and 4 cc of 0.2% ropivacaine was injected without resistance into the medial tibial femoral joint space. The patient tolerated the procedure. Advanced Care Planning Discussion Advance care planning discussed with:: patient Office Procedures GNS Level of Care Nursing/Assessment Patient Status: Established Patient Nursing Assessment/Reassesment: Medication Reconciliation, Update PMH in EMR and Vital Signs Coordination of Care: Complex Care and Chronic Disease 1-5, Education Complex Pt/Fam, Consent,records obtained, informed consent, Results/Orders obtained and Staff clarify orders Established Patient Charge Established Patient Point Assignment: 95 Established Patient Point Charge: EP Level 3 (80-115) Surgical Proc/IM SQ injection Minor Surgical Procedure: Yes (BILATERAL KNEE INJECTION) Medication Given Medication Given Medication Given: Yes Documented Dose Given: 1 Route: Infiitration Medication Given Medication Given Medication Given: Yes Documented Dose Given: 1 Route: Infiitration Medication Given Medication Given Medication Given: Yes Documented Dose Given: 4 Route: Infiitration Medication Given Medication Given Medication Given: Yes Documented Dose Given: 4 Route: Infiitration Office Meds methylprednisolone acetate 80 mg/mL suspension for injection Performing Provider: Garth Deleon MD Performing Location: [facility] Administered by: Garth Deleon MD on 11/26/24 09:26 Dose Route Admin Location Dispensed Lot Number Expiration Date Pack age [facility] [employer] 80 mg intra-articular 1 mL [id number] 02/07/26 [address]-7 7 [id number] [employer] methylprednisolone acetate 80 mg/mL suspension for injection Performing Provider: Garth Deleon MD Performing Location: [facility] Administered by: Garth Deleon MD on 11/26/24 09:26 Dose Route Admin Location Dispensed Lot Number Expiration Date Pack age [facility] Pre [employer] Aide 80 mg intra-articular 1 mL [id number] 02/07/26 [address]-1 7 [id number] [employer] ropivacaine (PF) 2 mg/mL (0.2 %) injection solution Performing Provider: Garth Deleon MD Performing Location: [facility] Administered by: Garth Deleon MD on 11/26/24 09:26 Dose Route Admin Location Dispensed Lot Number Expiration Date Pack age [facility] [place] Pre [employer]ole Counseling Aide 20 mL Infiltration 20 mL [id number] 04/09/27 07447-720-93 [id number] [facility] ropivacaine (PF) 2 mg/mL (0.2 %) injection solution Performing Provider: Garth Deleon MD Performing Location: [facility] Administered by: Garth Deleon MD on 11/26/24 09:26 Dose Route Admin Location Dispensed Lot Number Expiration Date Pack age [facility] [place] Pre [employer] Aide 20 mL Infiltration 20 mL [id number] 04/09/27 30684-025-26 [id number] [facility] [place] Intake Visit Data Collection New Patient or Established: Established Patient (seen at [facility] within 3 years) Reason for Visit:: FOLLOW UP ON A1C Seen by Clinical Staff ONLY (RN/MA): No Ruffling Hemmer Automatic Required: Yes PCP or OBGYN visit in last 3 months: Yes Hx Now: No Do You Feel Safe at Home: Yes Authorities Contacted: N/A Questionairres Past Medical History Past Medical History Have you ever been diagnosed with any of the following: Cardiology Problems Hypercholesterolemia: Yes Congestive Heart Failure: No Hypertension: Yes Respiratory Problems Chronic Obstructive Pulmonary Disease (COPD): No Asthma: No Smoking: No Smoking Cessation Counseling: No Smoking Exposure: No Stomache/Intestinal Problems Gall Bladder Disease: Yes (gallstones) Genital/Urinary Problems Renal Disease: No Musculoskeletal Problems Arthritis: Yes Endocrine Problems Diabetes Mellitus Type 1: No Diabetes Mellitus Type 2: Yes Blood Problems Sickle Cell Disease: No Subjective Visit Visit for: follow up visit, knee and x-rays Immunization / Flu Flu Vaccine in the Last 12 Months: Yes Flu Vaccine Exclusion Criteria: Already Received History of Present Illness Chief complaint: bilateral knee pain Patient is a pleasant 69-year-old male with left greater than right knee pain. Has been ongoing for several years. He is using a walker because of the pain. He has tried injections as well as anti-inflammatories in the past including Tylenol. He was told that he needed surgery in the past. The prior surgeon did leave the area unfortunately. In the referral from the primary care provider, he reports that his diabetes is uncontrolled. His last hemoglobin A1c was actually very good at 5.3. He is being seen by an oncologist because they think he may have pancreatic cancer. That is obviously will take precedence over surgery. We will continue with nonoperative treatment today including injections Personal History BMI Counceling provided: Yes Pain Pain level (0-10): 6 Pain location: inside (medial) Pain quality: sharp Pain timing: night and increases with activity Associated signs & symptoms: none Ambulatory data Ambulatory device: walker Treatments Improvement with previous injections: No Improvement with PT: No Improvement with NSAIDS: no Review of Systems Review of Systems: All systems negative unless otherwise noted in HPI.
== END 2024-11-26 09:00 | disposition home or self-care (01) ==
PROVIDERS: PCP Family Medicine; Referring Provider Family Medicine; Supervising Provider Orthopaedic Surgery Adult Reconstructive Orthopaedic Surgery; Visit Provider Orthopaedic Surgery Adult Reconstructive Orthopaedic Surgery
DX: M17.0 Bilateral primary osteoarthritis of knee (principal); M25.562 Pain in left knee; M25.561 Pain in right knee; E11.9 Type 2 diabetes mellitus without complications; I10 Essential (primary) hypertension; E78.00 Pure hypercholesterolemia, unspecified
CPT/HCPCS: 20610; 99213; J1010; J2795; G0463

== ENCOUNTER → 2024-12-08 | Outpatient (CLI) | payer OTHER, SELFPAY ==
--- NOTE | 2024-12-08 11:00 | XR_ITS ---
EXAMINATION: PET/CT FUSION SKULL TO THIGH EXAM DATE AND TIME: December 08, 2024, 1115 hours, comparison CT chest 11/11/2024, CT abdomen 11/11/2024 INDICATIONS: Diagnosis solitary pulmonary nodule CTDI:vol (mGy) 5.49 DLP: (mGycm) 501.79 PROCEDURE: 15.62 mCi FDG was administered intravenously To allow for distribution and uptake of radiotracer, the patient was allowed to rest quietly in a shielded room. Imaging was performed on an integrated 16-slice PET/CT scanner, with scanning from the skull base to the mid thigh. Serum blood glucose at the time of the injection was measured 83 mg/dL. CT scanning was performed without oral or intravenous contrast material. FINDINGS: Head and Neck: There is no alvaro hypermetabolism in the neck. The visualized portions of the brain are normal in appearance on CT. Chest: Non hypermetabolic pulmonary nodules 4 mm pulmonary nodule posterior right lung image 86 3 mm pulmonary nodule posterior left lung image 86 Abdomen and Pelvis: There is no alvaro hypermetabolism in retroperitoneal or pelvic chains. The spleen is normal in size and FDG avidity. Musculoskeletal: Marrow uptake is within normal range. IMPRESSION: Non hypermetabolic pulmonary nodules as above, please see the high-resolution CT chest report 11/11/2024
== END | disposition home or self-care (01) ==
LOC: CDIM 10:15
PROVIDERS: Referring Provider Family Medicine; Visit Provider Family Medicine
DX: R91.8 Other nonspecific abnormal finding of lung field (principal)
CPT/HCPCS: 78815; A9552

== ENCOUNTER 2025-01-12 07:45 | Day surgery (SDC) | payer OTHER, SELFPAY ==
[2025-01-11 09:30] VITALS: BMI 26.1
[2025-01-11 10:38] LABS: Basophils # (Auto) 0.0 Thou/mm3 (0.0-0.2); Basophils % (Auto) 0 % (0-2.5); Eosinophils # (Auto) 0.1 Thou/mm3 (0.0-0.5); Eosinophils % (Auto) 1 % (0-10); Hematocrit 38.3 % (41.0-53.0); Hemoglobin 12.9 g/dL (13.5-16.0); Immature Granulocytes Auto 0.02 Thou/mm3 (0.00-0.00); Lymphocytes # (Auto) 2.4 Thou/mm3 (1.0-4.8); Lymphocytes % (Auto) 32 % (10-50); Mean Corpuscular HGB Conc 33.7 g/dl (31.0-37.0); Mean Corpuscular Hemoglobin 29.3 pg (25.0-35.0); Mean Corpuscular Volume 87 fL (80-100); Monocytes # (Auto) 0.6 Thou/mm3 (0.0-0.8); Monocytes % (Auto) 8 % (0-12); Neutrophils # (Auto) 4.4 Thou/mm3 (1.8-7.7); Neutrophils % (Auto) 58 % (37-80); Nucleated Red Blood Cell # 0.00 Thou/mm3 (0.00-0.00); Nucleated Red Blood Cell % 0 /100 WBC (0); Platelet Count 250 Thou/mm3 (140-440); RDW Standard Deviation 48.4 fL (35.1-43.9); Red Blood Count 4.40 Miln/mm3 (4.50-5.90); White Blood Count 7.5 Thou/mm3 (3.8-10.6)
[2025-01-11 11:00] LABS: INR 1.1 (0.9-1.3); Partial Thromboplastin Time 30.1 Seconds (22.0-36.0); Prothrombin Time 11.2 Seconds (9.0-12.2)
[2025-01-11 11:10] LABS: Alanine Aminotransferase < 7 U/L (10-49); Albumin, Serum 4.5 gm/dL (3.4-4.8); Albumin/Globulin Ratio 1.5 (1.2-2.2); Alkaline Phosphatase 94 U/L (46-116); Anion Gap 12 (7-16); Aspartate Amino Transferase 17 U/L (0-34); BUN/Creatinine Ratio 17 Ratio (12-20); Bilirubin,Total 0.6 mg/dL (0.3-1.2); Blood Urea Nitrogen 12 mg/dL (9-23); Calcium 10.3 mg/dL (8.3-10.6); Calcium (Corrected) 10.3 mg/dL (8.5-10.1); Carbon Dioxide 30.2 mMol/L (20.0-31.0); Chloride 101 mMol/L (98-107); Creatinine (Component) 0.7 mg/dL (0.6-1.3); Estimated Creatinine Clearance 76.9 mL/min (>60); Globulin 3.0 gm/dL (2.3-3.5); Glucose 134 mg/dL (74-106); Osmolality,Calculated 286 (275-295); Potassium 3.4 mMol/L (3.4-5.1); Sodium 143 mMol/L (136-145); Total Protein 7.5 gm/dL (5.7-8.2); eGFR > 60 See Note
[2025-01-12] VITALS (7 sets, daily range): BP systolic 101–117; BP diastolic 66–88; PULSE 99–110; RESP 13–23; TEMP 36.3–36.8; O2SAT 96–100; BMI 26.1
--- NOTE | 2025-01-12 12:49 | SUR.PHASEI ---
1218: Pt received in [facility] via gurney. Report from Shyam TERRELL and Dr. Thayer. Pt obtunded. Oral airway in place. Resp even, unlabored. VS stable. Dressing x4 to abdomen covered with gauze and hypofix tape. 1225: Oral airway dc'd. Resp even, unlabored. 1252: Pt more responsive. VS stable. Resp even, unlabored. Dressings remain dry, clean, intact. No c/o pain.
--- NOTE | 2025-01-12 13:12 | SUR.PHASEII ---
1310: Pt more awake, alert. VS stable. Dressings remain dry, clean, intact. Denies pain. Pt sitting up tolerating po fluids with no difficulty swallowing and no n/v.
--- NOTE | 2025-01-12 13:27 | SUR.PHASEII ---
pt awake, alert, able to follow commands, breathing unlabored, dressing to abdomen clean, dry, and intact, pt meets discharge criteria-will disconnect from monitors, report from Kim TERRELL
--- NOTE | 2025-01-12 13:29 | SUR.PHASEII ---
1327: Report to Leonie TERRELL.
--- NOTE | 2025-01-12 13:40 | SUR.PHASEII ---
pt able to dress self with minimal assistance and ambulate to wheelchair with steady gait
--- NOTE | 2025-01-12 13:52 | PD.SUROPNT ---
Date of Procedure 01/12/25 Pre Op Diagnosis Symptomatic cholelithiasis Post Op Diagnosis Same Procedure Laparoscopic cholecystectomy Findings Patient was found to have numerous small gallstones without inflammation Procedure Description After endotracheal anesthesia was given the patient was placed in supine position and the abdomen was prepped with chloroprep solution and draped in a sterile manner. After time out was performed I injected a few cc of of half percent Marcaine with epinephrine below the umbilicus and I made an incision for about 3 cm in length. The fascia was cleaned and Veress needle was inserted to create a pneumoperitoneum up to 15 mmHg. Then introduced a 12 mm trocar and a 10 mm camera through the fascia and I inspected the intra-abdominal organs as well as the gallbladder and the liver. Another 5 mm trocar was inserted in the epigastric region under direct vision after injecting some local anesthesia. At this time the patient was kept in reverse Trendelenburg position with the left lateral tilt. The third 5 mm trocar was inserted over the mid axillary line under direct vision and a Mike and Ceci grasper was used to hold the fundus of the gallbladder. There were adhesions of omentum over the gallbladder which was released and the wall of the gallbladder was very thin and ruptured. At this time patient received 2 g of Ancef because of the contamination due to bile. Then the stone started coming out of the gallbladder and there were many stones. At this time I changed the 5 mm trocar in the epigastric region to a 12 mm trocar and introduced the gallbladder stone forceps and removed all the stones gradually one by one. Gallbladder was almost empty by the time I did this laborious removal of the stones. Because the gallbladder collapsed I could not find out the cystic duct clearly but I traced it to the neck and encircled it. In the cystic duct was clamped with a large clip applicator. Then the cystic artery was similarly dealt with. Then the tongue gallbladder was removed from the liver bed dissecting the liver bed with harmonic sena. This was then delivered out through the umbilical port. Inspection of the gallbladder showed that the neck portion has been torn. The liver bed was coagulated with cautery and the trocars were pulled out on the umbilical and epigastric portion were closed with Ethibond sutures. The skin was closed with interrupted 4-0 nylon stitches. Patient tolerated procedure well Anesthesia GETA Pathology / specimen Other (Gallbladder and the stones) IVF Infused 1,000 Estimated Blood Loss 75 Surgeon Riki Samuels MD Surgical Staff Operation Date: 01/12/25 10:00 Case Staff Anesthesiologist: Norberto Liao RN First Assistant: Hieu Cyr
--- NOTE | 2025-01-12 14:00 | SUR.PHASEII ---
discharge instructions given with spouse present using telephone licensed final expense agents [employer] ID#[id number], all questions answered, pt discharged via wheelchair with all belongings and copies of discharge paperwork.
== END 2025-01-12 14:00 | disposition home or self-care (01) ==
PROVIDERS: PCP Family Medicine; Referring Provider Surgery; Visit Provider Surgery
PROC: 0FT44ZZ Resection of Gallbladder, Percutaneous Endoscopic Approach (ICD-10-PCS; CPT 47562; principal; 2025-01-12 09:45)
DX: K80.20 Calculus of gallbladder without cholecystitis without obstruction (principal); E11.9 Type 2 diabetes mellitus without complications; I10 Essential (primary) hypertension; K40.90 Unilateral inguinal hernia, without obstruction or gangrene, not specified as recurrent; E78.5 Hyperlipidemia, unspecified; N40.0 Benign prostatic hyperplasia without lower urinary tract symptoms
CPT/HCPCS: 47562; 36415; 80053; 85025; 85610; 85730; A4217; A4649; J0131; J0690; J1100; J1885; J2250; J2405; J2704; J3010; J3490

== ENCOUNTER 2025-03-09 13:17 | Outpatient (AMB) | payer OTHER, SELFPAY ==
--- NOTE | 2025-03-09 13:29 | ORTHONT_ITS ---
Vital signs 03/09/25 13:31 Height 1.57 m Height Method Stated Weight 57.691 kg Weight Measurement Method Standing Scale BMI 23.3 BP 104/72 Blood Pressure Source Automatic Cuff Blood Pressure Location Left Upper Arm Position Sitting Respiration 20 Pulse 112 H Pulse Source Monitor Temp 96.9 F Temp Source Temporal Artery Scan Pulse Oximetry (%) 97 Oxygen Delivery Method Room Air Med/Allergies Allergies & Medications Allergies No Known Allergies Allergy (Verified 03/09/25 13:31) Medication Reconciliation amlodipine 10 mg tablet 10 mg PO QDAY 10/01/24 [History Confirmed 03/09/25] metformin 500 mg tablet 500 mg PO BID 10/01/24 [History Confirmed 03/09/25] atorvastatin 20 mg tablet 20 mg PO DAILY 01/11/25 [History Confirmed 03/09/25] magnesium 500 mg tablet 15 mg PO QDAY 01/11/25 [History Confirmed 03/09/25] metoclopramide HCl 10 mg tablet 10 mg PO BID 01/11/25 [History Confirmed 03/09/25] mirtazapine 30 mg tablet 30 mg PO HS 01/11/25 [History Confirmed 03/09/25] tamsulosin 0.4 mg capsule (Flomax) 0.4 mg PO QDAY 01/11/25 [History Confirmed 03/09/25] tramadol 50 mg tablet 50 mg PO Q12H PRN pain 01/11/25 [History Confirmed 03/09/25] Exam Exam Patient is in no acute distress and is cooperative with the examination today. Breathing is nonlabored. In no respiratory distress. Bilateral extremities were evaluated and demonstrates sensation intact to light touch. Palpable pedal pulses are present. No significant edema is present. Bilateral hips were examined. The patient has no pain with log roll of the hips. Internal rotation to 30 degrees and external rotation to 30 degrees is painless. Negative FADIR. The left knee was examined. The left knee is in varus alignment. Range of motion from 0-115 degrees. Knee is stable to varus and valgus as well as AP translation with <5mm. Patient has a negative McMurrays. There is no pain with patellofemoral compression and no crepitus noted. The knee is tender to palpation medially. The right knee was also examined. The right knee is in varus alignment. Range of motion from 0-120 degrees. Knee is stable to varus and valgus as well as AP translation with <5mm. Patient has a negative McMurrays. There is no pain with patellofemoral compression and no crepitus noted. The knee is tender to palpation medially X-rays demonstrate bilateral joint space narrowing medially with complete obliteration of the medial joint space Assessment and Plan Problem List (1) Bilateral primary osteoarthritis of knee: Status: Acute Plan: Patient is a 69-year-old male with diabetes and bilateral knee pain. His diabetes is now under control. We will get bilateral knee injections today as he is not a surgical candidate currently because of his oncology workup right now He would like to see if he can get clearance for surgery. The last injection did not provide durable pain Advanced Care Planning Discussion Advance care planning discussed with:: patient Office Procedures GNS Level of Care Nursing/Assessment Patient Status: Established Patient Nursing Assessment/Reassesment: Medication Reconciliation, Update PMH in EMR and Vital Signs Coordination of Care: Complex Care and Chronic Disease 1-5, Education Complex Pt/Fam, Consent,records obtained, informed consent, Results/Orders obtained and Staff clarify orders Established Patient Charge Established Patient Point Assignment: 95 Established Patient Point Charge: EP Level 3 (80-115) MA Intake Visit Data Collection New Patient or Established: Established Patient (seen at [facility] within 3 years) Reason for Visit:: 3MTH BL KNEE Seen by Clinical Staff ONLY (RN/MA): No Rn Chemical Dependency Required: Yes PCP or OBGYN visit in last 3 months: Yes Hx Now: No Do You Feel Safe at Home: Yes Authorities Contacted: N/A Questionairres Past Medical History Past Medical History Have you ever been diagnosed with any of the following: Neurological Problems Seizures: No Cardiology Problems Hypercholesterolemia: Yes Congestive Heart Failure: No Hypertension: Yes Respiratory Problems Chronic Obstructive Pulmonary Disease (COPD): No Asthma: No Smoking: No Smoking Cessation Counseling: No Smoking Exposure: No Stomache/Intestinal Problems Gall Bladder Disease: Yes (gallstones) Genital/Urinary Problems Renal Disease: No Benign Prostatic Hyperplasia: Yes Musculoskeletal Problems Arthritis: Yes Endocrine Problems Diabetes Mellitus Type 1: No Diabetes Mellitus Type 2: Yes Blood Problems Anemia: Yes Sickle Cell Disease: No Other Problems Hospitalization: Yes Shingles: No Blood Transfusions: No Blood Transfusion Reaction: No Anesthesia Reactions: No Clostridium Difficile: No Cancer: Yes (was told pancreatic by one Dr then another Dr said no cancer) Subjective Visit Visit for: follow up visit, knee and x-rays Immunization / Flu Flu Vaccine in the Last 12 Months: Yes Flu Vaccine Exclusion Criteria: Already Received History of Present Illness Chief complaint: bilateral knee pain Patient is a pleasant 70-year-old male with left greater than right knee pain. Has been ongoing for several years. He is using a walker because of the pain. He has tried injections as well as anti-inflammatories in the past including Tylenol. He was told that he needed surgery in the past. The prior surgeon did leave the area unfortunately. In the referral from the primary care provider, he reports that his diabetes is uncontrolled. His last hemoglobin A1c was actually very good at 5.3. Personal History BMI Counceling provided: Yes Pain Pain level (0-10): 6 Pain location: inside (medial) Pain quality: sharp Pain timing: night and increases with activity Associated signs & symptoms: none Ambulatory data Ambulatory device: walker Treatments Improvement with previous injections: No Improvement with PT: No Improvement with NSAIDS: no Review of Systems Review of Systems: All systems negative unless otherwise noted in HPI.
[2025-03-09 13:31] VITALS: BP 104/72; PULSE 112; RESP 20; TEMP 36.1; O2SAT 97; BMI 23.3
== END 2025-03-09 13:54 | disposition home or self-care (01) ==
LOC: HODSRG 13:17
PROVIDERS: PCP Family Medicine; Referring Provider Family Medicine; Supervising Provider Orthopaedic Surgery Adult Reconstructive Orthopaedic Surgery; Visit Provider Orthopaedic Surgery Adult Reconstructive Orthopaedic Surgery
DX: M25.562 Pain in left knee (principal); M25.561 Pain in right knee; I10 Essential (primary) hypertension; E11.9 Type 2 diabetes mellitus without complications; Z79.84 Long term (current) use of oral hypoglycemic drugs
CPT/HCPCS: 99213; G0463